=== PATIENT | male | born 1990 | race African-American/Black ===

== ENCOUNTER 2016-11-16 15:12 | Emergency (ER) | payer SELFPAY ==
[~2016-11-16] VITALS: Ht 175.3 cm; Wt 113.4 kg
[2016-11-16 15:20] VITALS: BP 137/80
[2016-11-16] MEDS ORDERED: DIPHTH,PERTUSS(ACELL),TET TOX 0.5 ML DISP.SYRIN. VAX IM ONE (15:30)
--- NOTE | 2016-11-16 16:27 | RAD ---
Procedure: Venous Lower Extremity bilateral. Clinical information: Bilateral lower extremity venous and swelling, greater on the left. Date of Service: 11/16/16. No priors. Technique: Color flow Doppler and Doppler spectral waveform analysis of the bilateral lower extremity venous system were acquired. In addition, compression, augmentation and response to Valsalva techniques were employed. Findings: Bilateral lower extremity veins demonstrate normal caliber and wall thickness. Color flow Doppler demonstrates normal venous flow without intraluminal thrombus. There is normal venous compression and distal augmentation. Doppler spectral waveform demonstrates normal venous respiratory phasicity. Note is made of mildly enlarged bilateral groin lymph nodes. Impression: Normal venous duplex study of the bilateral lower extremities. No evidence of deep venous thrombosis.
[2016-11-16] MEDS ORDERED: CLIN-44 PO (16:48)
[2016-11-16] MEDS ORDERED: TRAM-29 PO (16:48)
--- NOTE | 2016-11-16 16:49 | PHYS DOC ---
Past Medical History Past Medical History: Migraines Past Surgical History: No Surgical History Alcohol Use: None Drug Use: None Adult General Chief Complaint Chief Complaint: LOWER EXT PAIN HPI HPI Patient is a 26 year old male with no significant medical history who presents with bilateral lower extremities pain and swelling that began 3 days ago. Patient denies any fever. Denies any trauma. Review of Systems Review of Systems Constitutional: Denies fever or chills [] Eyes: Denies change in visual acuity, redness, or eye pain [] HENT: Denies nasal congestion or sore throat [] Respiratory: Denies cough or shortness of breath [] Cardiovascular: No additional information not addressed in HPI [] GI: Denies abdominal pain, nausea, vomiting, bloody stools or diarrhea [] : Denies dysuria or hematuria [] Musculoskeletal: Denies back pain or joint pain [] Integument: Bilateral lower extremity pain and swelling Neurologic: Denies headache, focal weakness or sensory changes [] Endocrine: Denies polyuria or polydipsia [] Current Medications Current Medications Current Medications Medications (Trade) Dose Ordered Sig/Eduardo Start Time Stop Time Status Last Admin Dose Admin Diphtheria/ Tetanus/Acell Pertussis (Boostrix) 0.5 ml ONCE ONCE 11/16/16 15:30 11/16/16 15:31 DC 11/16/16 16:21 0.5 ML Allergies Allergies Allergies Coded Allergies Type Severity Reaction Last Updated Verified No Known Drug Allergies 11/16/16 No Physical Exam Physical Exam Constitutional: Well developed, well nourished, no acute distress, non-toxic appearance. [] HENT: Normocephalic, atraumatic, bilateral external ears normal, oropharynx moist, no oral exudates, nose normal. [] Eyes: PERRLA, EOMI, conjunctiva normal, no discharge. [] Neck: Normal range of motion, no tenderness, supple, no stridor. [] Cardiovascular:Heart rate regular rhythm, no murmur [] Lungs & Thorax: Bilateral breath sounds clear to auscultation [] Abdomen: Bowel sounds normal, soft, no tenderness, no masses, no pulsatile masses. [] Skin: Bilateral lower extremity medial aspects with areas of cellulitis covering the lower aspect of the extremities from the ankle to the mid calf. Negative Homans sign bilaterally. +2 bilateral lower extremity pulses. Neurovascular exam is normal bilateral lower extremities. Back: No tenderness, no CVA tenderness. [] Extremities: No tenderness, no cyanosis, no clubbing, ROM intact, no edema. [] Neurologic: Alert and oriented X 3, normal motor function, normal sensory function, no focal deficits noted. [] Psychologic: Affect normal, judgement normal, mood normal. [] Current Patient Data Vital Signs Vital Signs Date Time Temp Pulse Resp B/P (MAP) Pulse Ox O2 Delivery O2 Flow Rate FiO2 11/16/16 15:20 99.9 111 20 97 Room Air 99.9 EKG EKG [] Radiology/Procedures Radiology/Procedures [] Course & Med Decision Making Course & Med Decision Making Pertinent Labs and Imaging studies reviewed. (See chart for details) Patient is in the ED with bilateral extremity cellulitis with slight fever with a temperature of 99.9. Bilateral lower extremities venous Dopplers are negative for any acute findings. Patient was given tetanus in the ED. Discharged with clindamycin. Instructed to keep the affected area clean and dry. Follow-up with PCP in 1-2 weeks. Dragon Disclaimer Dragon Disclaimer This electronic medical record was generated, in whole or in part, using a voice recognition dictation system. Departure Departure Impression: Primary Impression: Bilateral lower leg cellulitis Additional Impression: Fever Disposition: 01 HOME, SELF-CARE Condition: STABLE Referrals: NO PCP (PCP) Follow-up with your primary care doctor in 1-2 weeks Patient Instructions: Cellulitis, [id number], Fever, Adult Additional Instructions: You were seen with cellulitis of bilateral lower extremities. You are also running a slight temperature. Take Tylenol every 4 hours and Motrin every 6 hours. Keep your lower extremities clean and dry. Complete your antibiotics. Try and follow-up with the primary care doctor in the next 7-14 days. Scripts Tramadol Hcl (ULTRAM) 50 Mg Tablet 1 TAB PO Q6HRS, #30 TAB Prov: MARYSE GALVAN APRN 11/16/16 Clindamycin Hcl (CLINDAMYCIN HCL) 150 Mg Capsule 3 CAP PO TID, #90 CAP Prov: MARYSE GALVAN APRN 11/16/16 Problem Qualifiers Additional Impression: Fever Fever type: unspecified Qualified Codes: R50.9 - Fever, unspecified MARYSE GALVAN APRN November 16, 2016 16:49
== END 2016-11-16 17:01 | disposition home or self-care (01) ==
LOC: ER 15:12
DX: L03.115 Cellulitis of right lower limb (principal); L03.116 Cellulitis of left lower limb; G43.909 Migraine, unspecified, not intractable, without status migrainosus
CPT/HCPCS: 90471; 90715; 93970; 99284-25

== ENCOUNTER 2017-09-28 18:02 | Emergency (ER) | payer SELFPAY ==
[2017-09-28 19:02] LABS: ADD MAN DIFF? NO
[2017-09-28] MEDS: IV NORMAL SALINE 1000ML BAG 1,000 ML IV (19:02)
[2017-09-28 19:03] LABS: BASO # 0.1 x10^3/uL (0.0-0.2); BASO % 1 % (0-3); EOS # 0.1 x10^3/uL (0.0-0.7); EOS % 1 % (0-3); HEMOGLOBIN 13.7 g/dL (13.0-17.5); LYMPH # 4.5 x10^3/uL (1.0-4.8); LYMPH % 43 % (24-48); MEAN CORPUSCULAR HEMOGLOBIN 26 pg (25-35); MEAN CORPUSCULAR HGB CONC 33 g/dL (31-37); MEAN CORPUSCULAR VOLUME 81 fL (79-100); MONO # 0.9 x10^3/uL (0.0-1.1); MONO % 9 % (0-9); NEUT # 4.9 x10^3uL (1.8-7.7); NEUT % 47 % (31-73); PLATELET COUNT 264 x10^3/uL (140-400); RED BLOOD COUNT 5.21 x10^6/uL (4.30-5.70); RED CELL DISTRIBUTION WIDTH 14.8 % (11.5-14.5); WHITE BLOOD COUNT 10.4 x10^3/uL (4.0-11.0)
[2017-09-28] MEDS: ONDANSETRON PF 4 MG/2 ML VIAL. IV (19:03)
[2017-09-28] MEDS: ASA/APAP/CAFFEINE 250/250/65MG TABLET. PO (19:03)
[2017-09-28 19:12] LABS: INR 1.1 (0.8-1.1); PROTHROMBIN TIME PATIENT 13.7 SEC (11.7-14.0)
[2017-09-28 19:14] LABS: ANION GAP 10 (6-14); BLOOD UREA NITROGEN 8 mg/dL (8-26); CALCIUM 8.9 mg/dL (8.5-10.1); CARBON DIOXIDE 27 mmol/L (21-32); CHLORIDE 100 mmol/L (98-107); CREATININE 1.1 mg/dL (0.7-1.3); GFR 95.8; GLUCOSE 107 mg/dL (70-99); POTASSIUM 3.4 mmol/L (3.5-5.1); SODIUM 137 mmol/L (136-145)
[2017-09-28 19:19] LABS: ALBUMIN 3.6 g/dL (3.4-5.0); ALK PHOS 83 U/L (46-116); ALT (SGPT) 41 U/L (16-63); AST (SGOT) 23 U/L (15-37); DIRECT BILIRUBIN < 0.1 mg/dL (0.0-0.2); MAGNESIUM 1.8 mg/dL (1.8-2.4); TOTAL BILIRUBIN 0.3 mg/dL (0.2-1.0); TOTAL PROTEIN 8.4 g/dL (6.4-8.2)
[2017-09-28 19:32] LABS: CREATINE KINASE 128 U/L (39-308)
[2017-09-28] MEDS: GADOBUTROL 10 MMOL/10 ML VIAL IV (20:47)
[2017-09-28 21:26] LABS: BILIRUBIN,URINE NEGATIVE (NEG); CLARITY,URINE CLEAR; COLOR,URINE YELLOW; GLUCOSE,URINE NEGATIVE (NEG); NITRITE,URINE NEGATIVE (NEG); PH,URINE 6.5; PROTEIN,URINE NEGATIVE (NEG-TRACE)
[2017-09-28 21:32] LABS: BARBITURATES NEG (NEG); BENZODIAZEPINES NEG (NEG); CANNABINOIDS NEG (NEG); COCAINE NEG (NEG); METHADONE NEG (NEG); OPIATES NEG (NEG); PHENCYCLIDINE NEG (NEG)
[2017-09-28 21:33] LABS: AMPHETAMINE/METHAMPHETAMINE NEG (NEG); ETHANOL, URINE NEG (NEG)
[2017-09-28 21:44] LABS: BACTERIA,URINE FEW /HPF (0-FEW)
[2017-09-28 21:45] LABS: SQUAMOUS EPITHELIAL CELL,UR OCC /LPF
== END 2017-09-28 22:17 | disposition home or self-care (01) ==
LOC: ER 18:02
DX: G43.109 Migraine with aura, not intractable, without status migrainosus (principal)
CPT/HCPCS: 36415; 70450; 70553; 80048; 80076; 80307; 81001; 82553; 83735; 84443; 85025; 85610; 87086; 93005; 96361; 96374; 96375; 99285-25; A9585; J2405; J7030

== ENCOUNTER 2019-06-14 16:01 | Emergency (ER) | payer OTHER ==
[~2019-06-14] VITALS: Ht 177.8 cm; Wt 113.4 kg
[~2019-06-14 16:01] MED LIST: CLIN150C14 PO; TRAM-48 PO
[2019-06-14 16:20] VITALS: BP 160/72
[2019-06-14] MEDS ORDERED: BENZ100C PO (16:48)
[2019-06-14] MEDS ORDERED: AZIT250T6 PO (16:48)
[2019-06-14] MEDS ORDERED: VENTOLIN HFA18 GM INH (16:48)
--- NOTE | 2019-06-14 16:48 | PHYS DOC ---
Past Medical History Past Medical History: HIV, Migraines Past Surgical History: No Surgical History Alcohol Use: None Drug Use: None Adult General Chief Complaint Chief Complaint: COUGH HPI HPI Patient is a 29 year old AA male who presents to the emergency department with complaints of a cough for the last 2 weeks. Patient states she's been taking Mucinex with little relief of his symptoms. He reports chest congestion, intermittent wheezing, and a nonproductive cough for the last 2 weeks. Patient states that times is ears have hurt he denies any bleeding or drainage from the ears. Patient also denies any fever, shortness of breath, nausea, vomiting, diarrhea, sore throat, abdominal pain, back pain, body aches, rash, or headache. Patient states that his only health history is HIV, he is currently on antiviral therapy for that. He currently complains of feeling fatigued. He denies any pain at this time. All other ROS is neg unless otherwise noted in HPI. Review of Systems Review of Systems See Above Allergies Allergies Allergies Coded Allergies Type Severity Reaction Last Updated Verified No Known Drug Allergies 11/16/16 No Physical Exam Physical Exam See Above Constitutional: Well developed, well nourished, no acute distress, non-toxic appearance, obese. [] HENT: Normocephalic, atraumatic, bilateral external ears normal, bilateral TMs normal, mild erythema of posterior pharynx, oropharynx moist, no oral exudates, nose normal. [] Eyes: PERRLA, EOMI, conjunctiva normal, no discharge. [] Neck: Normal range of motion, no tenderness, supple, no stridor. [] Cardiovascular:Heart rate regular rhythm, no murmur [] Lungs & Thorax: Bilateral breath sounds clear to auscultation [] Skin: Warm, dry, no erythema, no rash. [] Back: No tenderness Extremities: No cyanosis, ROM intact Neurologic: Alert and oriented X 3, no focal deficits noted. [] Psychologic: Affect normal, judgement normal, mood normal. [] Current Patient Data Vital Signs Vital Signs Date Time Temp Pulse Resp B/P (MAP) Pulse Ox O2 Delivery O2 Flow Rate FiO2 06/14/19 16:20 98.3 115 22 160/72 (101) 97 Room Air 98.3 EKG EKG [] Radiology/Procedures Radiology/Procedures [] Course & Med Decision Making Course & Med Decision Making Pertinent Labs and Imaging studies reviewed. (See chart for details) [] Dragon Disclaimer Dragon Disclaimer This electronic medical record was generated, in whole or in part, using a voice recognition dictation system. Departure Departure Impression: Primary Impression: URI (upper respiratory infection) Additional Impression: Bronchitis Disposition: 01 HOME, SELF-CARE Condition: STABLE Referrals: NO PCP (PCP) Patient Instructions: Acute Bronchitis, [id number], Upper Respiratory Infection, Adult, [id number] Additional Instructions: Fill prescription(s) and use as directed. Recommend use of a Cool mist humidifier in room at bedtime. Alternate Tylenol or ibuprofen as needed for pain/fever. Increase clear fluids. Avoid airway triggers such as smoke, fragrance, dust, and pollen. May take [id number] cough suppressants as needed. Follow-up with your primary care doctor if symptoms persist, return to the ER if symptoms worsen. Scripts Benzonatate (TESSALON PERLE) 100 Mg Capsule 1 CAP PO TID PRN for COUGH for 7 Days, #21 CAP 0 Refills Prov: VICKIE HE APRN 06/14/19 Azithromycin (AZITHROMYCIN TABLET) 250 Mg Tablet 1 PKG PO UD for 5 Days, #6 TAB 0 Refills 2 the first day followed by 1 for days 2-5 Prov: VICKIE HE APRN 06/14/19 Albuterol Sulfate (VENTOLIN HFA INHALER) 18 Gm Hfa.aer.ad 2 PUFF INH Q4HRS PRN for WHEEZING for 30 Days, #1 INHALER 0 Refills Prov: VICKIE HE APRN 06/14/19 Problem Qualifiers Primary Impression: URI (upper respiratory infection) URI type: unspecified viral URI Qualified Codes: J06.9 - Acute upper respiratory infection, unspecified VICKIE HE APRN Jun 14, 2019 16:48
== END 2019-06-14 16:55 | disposition home or self-care (01) ==
LOC: ER 16:01
DX: J40 Bronchitis, not specified as acute or chronic (principal); J06.9 Acute upper respiratory infection, unspecified; G43.909 Migraine, unspecified, not intractable, without status migrainosus
CPT/HCPCS: 99283

== ENCOUNTER 2019-06-29 23:42 | Emergency (ER) | payer OTHER ==
[~2019-06-29] VITALS: Ht 177.8 cm; Wt 128.8 kg
[~2019-06-29 23:42] MED LIST changes: +AZIT250T6 PO; +BENZ100C PO; +VENTOLIN HFA18 GM INH
[2019-06-29 23:55] VITALS: BP 141/80
--- NOTE | 2019-06-30 00:16 | PHYS DOC ---
Past Medical History Past Medical History: HIV, Migraines (ZOILA SANTIZO APRN) Past Surgical History: No Surgical History (ZOILA SANTIZO APRN) Alcohol Use: None Drug Use: None (ZOILA SANTIZO APRN) Adult General Chief Complaint Chief Complaint: COUGH HPI HPI Patient is a 29 year old male who presents with cough that is productive with green mucus this been ongoing for month. The patient was seen 2 weeks ago and put on a Z-Jimmie, and given an inhaler which helped. The patient states that the cough has continued. He denies any fevers. The patient does have a history of HIV. (ZOILA SANTIZO APRN) Review of Systems Review of Systems Constitutional: Denies fever or chills [] Eyes: Denies change in visual acuity, redness, or eye pain [] HENT: Denies nasal congestion or sore throat [] Respiratory: Reports productive cough. Cardiovascular: No additional information not addressed in HPI [] GI: Denies abdominal pain, nausea, vomiting, bloody stools or diarrhea [] : Denies dysuria or hematuria [] Musculoskeletal: Denies back pain or joint pain [] Integument: Denies rash or skin lesions [] Neurologic: Denies headache, focal weakness or sensory changes [] Complete systems were reviewed and found to be within normal limits, except as documented in this note. (ZOILA SANTIZO APRN) Current Medications Current Medications Current Medications Medications (Trade) Dose Ordered Sig/Eduardo Start Time Stop Time Status Last Admin Dose Admin Dexamethasone (Decadron) 10 mg 1X STAT 06/30/19 00:22 06/30/19 00:25 DC 06/30/19 00:55 10 MG (ZOILA GARDINER DO) Allergies Allergies Allergies Coded Allergies Type Severity Reaction Last Updated Verified No Known Drug Allergies 11/16/16 No (ZOILA GARDINER DO) Physical Exam Physical Exam Constitutional: Well developed, well nourished, no acute distress, non-toxic appearance. [] HENT: Normocephalic, atraumatic, bilateral external ears normal, oropharynx moist, no oral exudates, nose normal. [] Eyes: PERRLA, EOMI, conjunctiva normal, no discharge. [] Neck: Normal range of motion, no tenderness, supple, no stridor. [] Cardiovascular:Heart rate regular rhythm, no murmur [] Lungs & Thorax: Bilateral breath sounds clear to auscultation [] Neurologic: Alert and oriented X 3, normal motor function, normal sensory function, no focal deficits noted. [] Psychologic: Affect normal, judgement normal, mood normal. [] (ZOILA SANTIZO APRN) Current Patient Data Vital Signs Vital Signs Date Time Temp Pulse Resp B/P (MAP) Pulse Ox O2 Delivery O2 Flow Rate FiO2 06/29/19 23:55 98.6 97 18 141/80 (100) 99 Room Air 98.6 (ZOILA GARDINER DO) EKG EKG [] (ZOILA SANTIZO APRN) Radiology/Procedures Radiology/Procedures [] (ZOILA SANTIZO APRN) Course & Med Decision Making Course & Med Decision Making Pertinent Labs and Imaging studies reviewed. (See chart for details) Will get a chest x-ray as this has been ongoing for a month. The chest x-ray shows some opacities. Will place on Doxycycline, Inhaler, Tessalon Perles, and 5 days of Prednisone. Will give Decadron in ER. (ZOILA SANTIZO APRN) Dragon Disclaimer Dragon Disclaimer This electronic medical record was generated, in whole or in part, using a voice recognition dictation system. (ZOILA SANTIZO APRN) Departure Departure Impression: Primary Impression: Bronchitis Additional Impression: History of HIV infection Disposition: 01 HOME, SELF-CARE Condition: STABLE Referrals: ALEA COLLADO MD (PCP) Patient Instructions: Acute Bronchitis Additional Instructions: Thank you for visiting [facility]. We appreciate you trusting us with your care. If any additional problems come up don't hesitate to return to visit us. Please follow up with your primary care provider so they can plan additional care if needed and know about the problem that you had. If symptoms worsen come back to the Emergency Department. Any concerning symptoms that start such as chest pain, shortness of air, weakness or numbness on one side of the body, running high fevers or any other concerning symptoms return to the ER. Please fill your medications at any pharmacy and follow the prescription instructions. You have been prescribed an antibiotic today to help fight your infection. Please take all of the antibiotic as directed. If after 48 hours the infection is not improving, please return for more care. If the infection worsens, return to ER for additional care. Scripts Doxycycline Hyclate (DOXYCYCLINE HYCLATE) 100 Mg Capsule 1 CAP PO BID for 10 Days, #20 CAP Prov: ZOILA SANTIZO APRN 06/30/19 Prednisone (PREDNISONE) 20 Mg Tablet 2 TAB PO DAILY for 5 Days, #10 TAB Prov: ZOILA SANTIZO APRN 06/30/19 Benzonatate (TESSALON PERLE) 100 Mg Capsule 1 CAP PO TID PRN for COUGH for 7 Days, #21 CAP 0 Refills Prov: ZOILA SANTIZO APRN 06/30/19 Albuterol Sulfate (VENTOLIN HFA INHALER) 18 Gm Hfa.aer.ad 2 PUFF INH Q4HRS PRN for WHEEZING for 30 Days, #1 INHALER 0 Refills Prov: ZOILA SANTIZO APRN 06/30/19 Attending Signature Attending Signature I have reviewed the PA/SOCK LINER's note and plan of care. I was available for consultation as needed during the patient's visit in the emergency department. I agree with the clinical impression, plan, and disposition. (ZOILA GARDINER DO) Problem Qualifiers ZOILA SANTIZO APRN Jun 30, 2019 00:16 ZOILA GARDINER DO Jun 30, 2019 01:19
[2019-06-30] MEDS ORDERED: DEXAMETHASONE 4 MG TABLET PO STA (00:22)
[2019-06-30] MEDS ORDERED: PRED20TA PO (00:25)
[2019-06-30] MEDS ORDERED: VENTOLIN HFA18 GM INH (00:25)
[2019-06-30] MEDS ORDERED: BENZ100C PO (00:25)
[2019-06-30] MEDS ORDERED: DOXY100C2 PO (00:25)
--- NOTE | 2019-06-30 04:36 | RAD ---
CHEST PA LATERAL INDICATION: Cough. COMPARISON STUDY: None. FINDINGS: Lungs: Low lung volume. Mild right basilar opacities. The tracheobronchial tree and hilar structures are normal. Pleura: No pleural effusion or pneumothorax. Heart and Mediastinum: The cardiomediastinal silhouette is normal. The great vessels of the thorax are normal. Bones and Soft Tissues: The bones and soft tissues are within normal limits. IMPRESSION: Mild right basilar opacities, which could represent subsegmental atelectasis or potentially an infectious/inflammatory process. Electronically signed by: Stanford Delgado MD (06/30/2019 4:33 AM) [facility]
== END 2019-06-30 01:02 | disposition home or self-care (01) ==
LOC: ER 23:42
DX: J40 Bronchitis, not specified as acute or chronic (principal); G43.909 Migraine, unspecified, not intractable, without status migrainosus
CPT/HCPCS: 71046; 99284; J8540

== ENCOUNTER 2019-08-10 12:55 | Emergency (ER) | payer OTHER ==
[~2019-08-10] VITALS: Ht 177.8 cm; Wt 127.0 kg
[~2019-08-10 12:55] MED LIST changes: +DOXY100C2 PO; +PRED20TA PO
[2019-08-10 13:35] VITALS: BP 144/74
[2019-08-10] MEDS ORDERED: predniSONE 10 MG TABLET PO ONE (14:00)
[2019-08-10] MEDS ORDERED: ALBUTEROL SULFATE 2.5 MG/3 ML NEBU. NEB ONE (14:00)
--- NOTE | 2019-08-10 14:01 | PHYS DOC ---
Past Medical History Past Medical History: HIV, Migraines Past Surgical History: No Surgical History Alcohol Use: None Drug Use: None Adult General Chief Complaint Chief Complaint: COUGH HPI HPI Patient is a 29 year old male who presents with was here June 14 for an upper respiratory illness which she is given azithromycin, Tessalon Perles inhaler. He continued to have the cough and came back on June 29, 2019 and was given doxycycline, Tessalon Perles, and inhaler and steroid. Patient states he followed up with his primary care doctor but when he went they said that he was not wheezing today cannot refer him anywhere. Patient states he's been diagnosed with asthma but has not been able to get further care for his asthma. Review of Systems Review of Systems Respiratory: cough or shortness of breath [] All other systems were reviewed and found to be within normal limits, except as documented in this note. Current Medications Current Medications Current Medications Medications (Trade) Dose Ordered Sig/Eduardo Start Time Stop Time Status Last Admin Dose Admin Albuterol Sulfate (Ventolin Neb Soln) 2.5 mg 1X ONCE 08/10/19 14:00 08/10/19 14:01 DC 08/10/19 14:03 2.5 MG Prednisone (Prednisone) 50 mg 1X ONCE 08/10/19 14:00 08/10/19 14:01 DE Allergies Allergies Allergies Coded Allergies Type Severity Reaction Last Updated Verified No Known Drug Allergies 11/16/16 No Physical Exam Physical Exam Constitutional: Well developed, well nourished, no acute distress, non-toxic appearance. [] HENT: Normocephalic, atraumatic, bilateral external ears normal, oropharynx moist, no oral exudates, nose normal. [] Eyes: PERRLA, EOMI, conjunctiva normal, no discharge. [] Neck: Normal range of motion, no tenderness, supple, no stridor. [] Cardiovascular:Heart rate regular rhythm, no murmur [] Lungs & Thorax: Bilateral upper breath sounds were inspiratory wheezes to auscultation [] Abdomen: Bowel sounds normal, soft, no tenderness, no masses, no pulsatile masses. [] Skin: Warm, dry, no erythema, no rash. [] Back: No tenderness, no CVA tenderness. [] Extremities: No tenderness, no cyanosis, no clubbing, ROM intact, no edema. [] Neurologic: Alert and oriented X 3, normal motor function, normal sensory function, no focal deficits noted. [] Psychologic: Affect normal, judgement normal, mood normal. [] Current Patient Data Vital Signs Vital Signs Date Time Temp Pulse Resp B/P (MAP) Pulse Ox O2 Delivery O2 Flow Rate FiO2 08/10/19 14:04 98 Room Air 08/10/19 13:35 97.9 86 20 144/74 (97) 97.9 EKG EKG [] Radiology/Procedures Radiology/Procedures [] Impressions: [facility] [address] [place] [address] IMAGING REPORT Signed PATIENT: MOUNIKA LUTZ RACCOUNT: [id number] : 1990 LOCATION: ER AGE: 29 SEX: M EXAM STATUS: REG ER ORD. PHYSICIAN: SANTIAGO GARSIA APRN REASON: cough PROCEDURE: CHEST PA & LATERAL CHEST PA LATERAL History: Cough Comparison: 06/30/2019 to chest x-ray exam. Findings: Frontal and lateral views of chest were obtained. Somewhat limited pulmonary inflation is evident. Heart size and pulmonary vasculature are normal. The cardiomediastinal silhouette is normal. Pulmonary vasculature is normal. Mild right medial lower lung field opacity which is minimally greater than on the prior exam is present. This may represent atelectasis. No pleural effusion or pneumothorax is seen. There is no acute bone abnormality. IMPRESSION: Subtle right infrahilar opacity which may represent atelectasis or possibly is again seen. It may be slightly more prominent in the interval. Electronically signed by: Evan Slade MD (08/10/2019 2:06 PM) [id number] DICTATED and SIGNED BY: EVAN SLADE MD DATE: 08/10/19 1406 Course & Med Decision Making Course & Med Decision Making Lungs are clear but he has wheezes expiratory and inspiratory and his upper lobes bilaterally. Speaks in full clear sentences. He states for his job he has to talk a lot and it makes him cough even more. Patient denies fever, nausea, vomiting, diarrhea, chest pain, dizziness, headache, numbness tingling, visual changes, weakness. He states he does not feel ill she is to cough and the shortness of breath and wheezing. Patient has a history of asthma, pneumonia, HIV, bronchitis. Dragon Disclaimer Dragon Disclaimer This electronic medical record was generated, in whole or in part, using a voice recognition dictation system. Departure Departure Impression: Primary Impression: Bronchitis Disposition: 01 HOME, SELF-CARE Condition: STABLE Referrals: ALEA COLLADO MD (PCP) KINGSTON AMEZCUA MD Patient Instructions: Bronchitis Additional Instructions: Follow-up with a cryptological technician. Take medications as prescribed. Scripts Albuterol Sulfate (PROAIR HFA INHALER) 8.5 Gm Hfa.aer.ad 1 PUFF INH PRN Q6HRS PRN for SHORTNESS OF BREATH, #1 INHALER 0 Refills Prov: SANTIAGO GARSIA ELECTRICAL HIGH TENSION TESTER 08/10/19 Benzonatate (TESSALON PERLE) 100 Mg Capsule 1 CAP PO TID, #30 CAP Prov: SANTIAGO GARSIA ELECTRICAL HIGH TENSION TESTER 08/10/19 Methylprednisolone (MEDROL) 4 Mg Tab.ds.pk 1 PKG PO UD, #1 PKG Prov: SANTIAGO GARSIA ELECTRICAL HIGH TENSION TESTER 08/10/19 Levofloxacin (LEVAQUIN) 500 Mg Tablet 1 TAB PO DAILY for 10 Days, #10 TAB 0 Refills Prov: SANTIAGO GARSIA ELECTRICAL HIGH TENSION TESTER 08/10/19 SANTIAGO GARSIA ELECTRICAL HIGH TENSION TESTER Aug 10, 2019 14:01
--- NOTE | 2019-08-10 14:09 | RAD ---
CHEST PA LATERAL History: Cough Comparison: 06/30/2019 to chest x-ray exam. Findings: Frontal and lateral views of chest were obtained. Somewhat limited pulmonary inflation is evident. Heart size and pulmonary vasculature are normal. The cardiomediastinal silhouette is normal. Pulmonary vasculature is normal. Mild right medial lower lung field opacity which is minimally greater than on the prior exam is present. This may represent atelectasis. No pleural effusion or pneumothorax is seen. There is no acute bone abnormality. IMPRESSION: Subtle right infrahilar opacity which may represent atelectasis or possibly is again seen. It may be slightly more prominent in the interval. Electronically signed by: Evan Raya MD (08/10/2019 2:06 PM) [id number]
[2019-08-10] MEDS ORDERED: ALBU2.5V8 INH (14:19)
[2019-08-10] MEDS ORDERED: BENZ100C PO (14:19)
[2019-08-10] MEDS ORDERED: LEVO500T59 PO (14:19)
[2019-08-10] MEDS ORDERED: METH4TAB2 PO (14:19)
== END 2019-08-10 14:26 | disposition home or self-care (01) ==
LOC: ER 12:55
DX: J40 Bronchitis, not specified as acute or chronic (principal); G43.909 Migraine, unspecified, not intractable, without status migrainosus; Z21 Asymptomatic human immunodeficiency virus [HIV] infection status
CPT/HCPCS: 71046; 94640; 99284; J7512; J7613

== ENCOUNTER 2019-11-23 01:23 | Emergency (ER) | payer OTHER ==
[~2019-11-23] VITALS: Ht 177.8 cm; Wt 131.8 kg
[~2019-11-23 01:23] MED LIST changes: +ALBU2.5V8 INH; +LEVO500T59 PO; +METH4TAB2 PO
[2019-11-23 01:35] VITALS: BP 134/60
--- NOTE | 2019-11-23 01:41 | PHYS DOC ---
Past Medical History Past Medical History: HIV, Migraines Past Surgical History: No Surgical History Smoking Status: Never Smoker Alcohol Use: None Drug Use: None General Adult EDM: Chief Complaint: LOWER BACK PAIN OR INJURY HPI: HPI: Patient is a 29 year old male who presents with complaint of tailbone pain. Patient states that he had been at work on Wednesday and was standing on some cardboard that slipped out from under him and he fell on to his tailbone, injuring it. He states that initially the pain was not very bad but the next morning it became worse and over the last few days, pain is progressively gotten worse. He does indicate that pain is worsened with walking. [] Review of Systems: Review of Systems: Constitutional: Denies fever or chills. [] Respiratory: Denies cough or shortness of breath. [] Cardiovascular: Denies chest pain or edema. [] Musculoskeletal: Complains of tailbone pain. [] Integument: Denies rash. [] Neurologic: Denies headache, focal weakness or sensory changes. [] Heart Score: Risk Factors: Risk Factors: DM, Current or recent (<one month) smoker, HTN, HLP, family history of CAD, obesity. Risk Scores: Score 0 - 3: 2.5% MACE over next 6 weeks - Discharge Home Score 4 - 6: 20.3% MACE over next 6 weeks - Admit for Clinical Observation Score 7 - 10: 72.7% MACE over next 6 weeks - Early Invasive Strategies Allergies: Allergies: Allergies Coded Allergies Type Severity Reaction Last Updated Verified No Known Drug Allergies 11/16/16 No Physical Exam: PE: Constitutional: Well developed, well nourished, no acute distress, non-toxic appearance. [] Cardiovascular: Regular rate and rhythm [] Lungs & Thorax: Bilateral breath sounds clear to auscultation [] Back: There is tenderness to palpation overlying the mid to lower coccyx. [] Extremities: No tenderness, no cyanosis, no clubbing, ROM intact, no edema. [] EKG: EKG: [] Radiology/Procedures: Radiology/Procedures: [] Course & Med Decision Making: Course & Med Decision Making Pertinent Labs and Imaging studies reviewed. (See chart for details) [] Dragon Disclaimer: Dragon Disclaimer: This electronic medical record was generated, in whole or in part, using a voice recognition dictation system. Departure Departure Impression: Primary Impression: Coccyx contusion Qualified Codes: S30.0XXA - Contusion of lower back and pelvis, initial encounter Disposition: 01 HOME, SELF-CARE Condition: STABLE Referrals: ALEA COLLADO MD (PCP) Patient Instructions: Tailbone Injury Scripts Tramadol Hcl (TRAMADOL HCL) 50 Mg Tablet 50 MG PO Q6HRS PRN for PAIN, #12 TAB Prov: LATOSHA ROSADO Jr. DO 11/23/19 Diclofenac Sodium (DICLOFENAC SODIUM) 50 Mg Tablet.dr 1 TAB PO BID PRN for PAIN, #20 TAB Prov: LATOSHA ROSADO Jr. DO 11/23/19 LATOSHA ROSADO Jr. DO November 23, 2019 01:41
--- NOTE | 2019-11-23 02:06 | RAD ---
Sacrum coccyx 3 views History: Pain status post fall AP views of the sacrum and coccyx was obtained as well as a lateral view. The visualized osseous structures appear normal. This is a difficult area to evaluate. There is some obscuration of bony detail of the sacrum due to overlying bowel gas. Impression: No acute bony abnormality noted. Electronically signed by: Shan Shen III, MD (11/23/2019 2:04 AM) [id number]
[2019-11-23] MEDS ORDERED: DICL50TA4 PO (02:10)
[2019-11-23] MEDS ORDERED: TRAM50TA PO (02:10)
== END 2019-11-23 02:18 | disposition home or self-care (01) ==
LOC: ER 01:23
DX: S30.0XXA Contusion of lower back and pelvis, initial encounter (principal); G43.909 Migraine, unspecified, not intractable, without status migrainosus; W01.0XXA Fall on same level from slipping, tripping and stumbling without subsequent striking against object, initial encounter; Y93.89 Activity, other specified; Y92.69 Other specified industrial and construction area as the place of occurrence of the external cause; Y99.0 Civilian activity done for income or pay
CPT/HCPCS: 72220; 99284

== ENCOUNTER 2020-10-23 01:28 | Emergency (ER) | payer OTHER ==
[~2020-10-23] VITALS: Ht 177.8 cm; Wt 127.2 kg
[~2020-10-23 01:28] MED LIST changes: -CLIN150C14 PO; +CLIN150C15 PO; +DICL50TA4 PO; +TRAM50TA PO
[2020-10-23 02:48] VITALS: BP 128/59
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
== END 2020-10-23 03:57 | disposition home or self-care (01) ==
LOC: ER 01:28
DX: T24.402A Corrosion of unspecified degree of unspecified site of left lower limb, except ankle and foot, initial encounter (principal); T32 Corrosions classified according to extent of body surface involved; G43.909 Migraine, unspecified, not intractable, without status migrainosus; Y93.89 Activity, other specified; Y92.89 Other specified places as the place of occurrence of the external cause; Y99.8 Other external cause status
CPT/HCPCS: 99282

== ENCOUNTER 2020-11-07 11:46 | Emergency (ER) | payer OTHER ==
[~2020-11-07] VITALS: Ht 177.8 cm; Wt 125.9 kg
[2020-11-07] MEDS ORDERED: ACETAMINOPHEN 500 MG TABLET PO ONE (12:30)
[2020-11-07] MEDS ORDERED: IV NORMAL SALINE 1000ML BAG 1,000 ML IV SCH (12:30)
[2020-11-07] MEDS ORDERED: DEXAMETHASONE SOD PHOS 20 MG/5 ML VIAL. IV ONE (12:30)
--- NOTE | 2020-11-07 12:36 | EKG ---
[facility] [address] [place] [address] Test Date: 2020-11-07 Test Time: 12:22:17 Pat Name: MOUNIKA LUTZ Department: Room: Gender: M Cap Sizer: : [id number] Requested By: MARYSE GALVAN Order Number: [id number] Reading MD: Measurements Intervals [place] Rate: 107 P: 27 WV: 144 QRS: 31 QRSD: 78 T: -1 QT: 306 QTc: 414 Interpretive Statements SINUS TACHYCARDIA OTHERWISE NORMAL ECG RI6.02 No previous ECG available for comparison
[2020-11-07 12:47] LABS: BASO # 0.1 x10^3/uL (0.0-0.2); BASO % 1 % (0-3); EOS % 0 % (0-3); HEMATOCRIT 40.3 % (39.0-53.0); HEMOGLOBIN 13.1 g/dL (13.0-17.5); LYMPH # 1.5 x10^3/uL (1.0-4.8); LYMPH % 18 % (24-48); MEAN CORPUSCULAR HEMOGLOBIN 26 pg (25-35); MEAN CORPUSCULAR HGB CONC 33 g/dL (31-37); MEAN CORPUSCULAR VOLUME 80 fL (79-100); MONO # 0.4 x10^3/uL (0.0-1.1); MONO % 5 % (0-9); NEUT # 6.5 x10^3/uL (1.8-7.7); NEUT % 77 % (31-73); PLATELET COUNT 336 x10^3/uL (140-400); RED BLOOD COUNT 5.05 x10^6/uL (4.30-5.70); WHITE BLOOD COUNT 8.5 x10^3/uL (4.0-11.0)
--- NOTE | 2020-11-07 12:51 | RAD ---
EXAM: Chest, single view. HISTORY: Cough. Fever. COMPARISON: 08/10/2019 FINDINGS: A frontal view of the chest is obtained. There is suspected right perihilar interstitial in filtrate and lingular atelectasis or interstitial infiltrate. There is no consolidation, pleural effu brian or pneumothorax. The heart is normal in size. IMPRESSION: Suspected right perihilar interstitial infiltrate and lingular interstitial infiltrate or atelectasis. No consolidated pneumonia is seen. Electronically signed by: Torie Harris MD (11/07/2020 12:49 PM) [id number]
[2020-11-07 13:00] LABS: CALCIUM 8.3 mg/dL (8.5-10.1); CREATININE 1.1 mg/dL (0.7-1.3); GFR 93.9
--- NOTE | 2020-11-07 13:02 | PHYS DOC ---
Past Medical History Past Medical History: Asthma, HIV, Migraines Past Surgical History: No Surgical History Smoking Status: Never Smoker Alcohol Use: None Drug Use: None General Adult EDM: Chief Complaint: SHORTNESS OF BREATH HPI: HPI: Patient is a 30 year old male with history of asthma, HIV positive, migraine headaches, who presents to the ED today with cough, shortness of breath, nasal congestion, generalized mild intermittent headache, shortness of breath symptoms began 3 days ago, he states this morning he had a fever. He states he took Tylenol at 8 AM. Patient denies any chest pain and had a breathing treatment. Denies anything specifically exacerbating or relieving his symptoms. Review of Systems: Review of Systems: Constitutional: Reports fever Eyes: Denies change in visual acuity. [] HENT: Reports nasal congestion and poor appetite, denies sore throat. [] Respiratory: Reports cough and shortness of breath. [] Cardiovascular: Denies chest pain or edema. [] GI: Denies abdominal pain, nausea, vomiting, bloody stools or diarrhea. [] : Denies dysuria. [] Musculoskeletal: Denies back pain or joint pain. [] Integument: Denies rash. [] Neurologic: Reports headache, denies focal weakness or sensory changes. [] Psychiatric: Denies depression or anxiety. [] Heart Score: C/O Chest Pain: N/A Risk Factors: Risk Factors: DM, Current or recent (<one month) smoker, HTN, HLP, family history of CAD, obesity. Risk Scores: Score 0 - 3: 2.5% MACE over next 6 weeks - Discharge Home Score 4 - 6: 20.3% MACE over next 6 weeks - Admit for Clinical Observation Score 7 - 10: 72.7% MACE over next 6 weeks - Early Invasive Strategies Current Medications: Current Medications Medications (Trade) Dose Ordered Sig/Eduardo Start Time Stop Time Status Last Admin Dose Admin Acetaminophen (Tylenol) 1,000 mg 1X ONCE 11/07/20 12:30 11/07/20 12:31 Dexamethasone Sodium Phosphate (Decadron) 10 mg 1X ONCE 11/07/20 12:30 11/07/20 12:31 Sodium Chloride 1,000 ml @ 2,190 mls/hr Q28M 11/07/20 12:30 11/07/20 13:30 Allergies: Allergies: Allergies Coded Allergies Type Severity Reaction Last Updated Verified No Known Drug Allergies 11/07/20 No Physical Exam: PE: Constitutional: Obese patient, no acute distress, non-toxic appearance. [] HENT: Normocephalic, atraumatic, bilateral external ears normal, oropharynx moist, no oral exudates, nose normal. [] Eyes: PERRLA, EOMI, conjunctiva normal, no discharge. [] Neck: Normal range of motion, no tenderness, supple, no stridor. [] Cardiovascular:Heart rate regular rhythm, no murmur [] Lungs & Thorax: Bilateral breath sounds clear to auscultation [] Abdomen: Bowel sounds normal, soft, no tenderness, no masses, no pulsatile masses. [] Skin: Warm, dry, no erythema, no rash. [] Back: No tenderness, no CVA tenderness. [] Extremities: No tenderness, no cyanosis, no clubbing, ROM intact, no edema. [] Neurologic: Alert and oriented X 3, normal motor function, normal sensory function, no focal deficits noted. [] Psychologic: Affect normal, judgement normal, mood normal. [] Current Patient Data: Vital Signs: Vital Signs Date Time Temp Pulse Resp B/P (MAP) Pulse Ox O2 Delivery O2 Flow Rate FiO2 11/07/20 12:04 100.6 110 28 138/66 (90) 94 Room Air 100.6 EKG: EK interpreted by Dr. Atkins sinus tachycardia heart rate 107 no STEMI [] Radiology/Procedures: Radiology/Procedures: []PROCEDURE: PORTABLE CHEST 1V EXAM: Chest, single view. HISTORY: Cough. Fever. COMPARISON: 08/10/2019 FINDINGS: A frontal view of the chest is obtained. There is suspected right perihilar interstitial infiltrate and lingular atelectasis or interstitial infiltrate. There is no consolidation, pleural effusion or pneumothorax. The heart is normal in size. IMPRESSION: Suspected right perihilar interstitial infiltrate and lingular interstitial infiltrate or atelectasis. No consolidated pneumonia is seen. Electronically signed by: Torie Araya MD (11/07/2020 12:49 PM) [id number] DICTATED and SIGNED BY: TORIE ARAYA MD DATE: 11/07/20 [id number] Course & Med Decision Making: Course & Med Decision Making Pertinent Labs and Imaging studies reviewed. (See chart for details) This is a 30-year-old male patient presenting to the ED today complaining of cough, shortness of breath, headache poor appetite and nasal congestion for 3 d ays, also complaining of a fever that began this morning. Temperature 100.6 with a heart rate of 110, respiration 28, 138/66, O2 sats 94% on arrival to the ED Sepsis protocol was started, Covid swab was obtained Patient was given Rocephin and azithromycin. CBC with a normal WBC, CMP with no acute findings, lactic is normal. Chest x-ray noted for interstitial infiltrates. O2 sats have been 94% and above in room air. Discharge to home on azithromycin and prednisone. Inhaler also provided. Follow-up with PCP. Provided return precautions and discharged in stable condition. Dragon Disclaimer: Dragon Disclaimer: This electronic medical record was generated, in whole or in part, using a voice recognition dictation system. Departure Departure Impression: Primary Impression: Fever Qualified Codes: R50.9 - Fever, unspecified Additional Impressions: Cough Asthma exacerbation Qualified Codes: J45.21 - Mild intermittent asthma with (acute) exacerbation Person under investigation for COVID-19 Disposition: HOME HEALTH CARE SERVICE Condition: STABLE Referrals: ALEA COLLADO MD (PCP) follow up in 1-2 weeks Patient Instructions: Cough, Adult, [id number], Fever, Adult Additional Instructions: Your chest x-ray in the emergency room was noted for interstitial infiltrates, we put you on antibiotics, ensure you complete them also complete the prescribe d prednisone. Please take Tylenol or ibuprofen as needed for fever. Follow-up with your primary care doctor in 1 week, come back to the ED at any point symptoms worsen. Quarantine yourself until you get your Covid results Scripts Albuterol Sulfate (Proair Hfa) 8.5 Gm Hfa.aer.ad 1 PUFF INH PRN Q6HRS PRN for SHORTNESS OF BREATH, #1 EACH 1 Refill Prov: MARYSE GALVAN MACHINE CAPTAIN 11/07/20 Prednisone (PREDNISONE) 50 Mg Tablet 1 TAB PO DAILY, #5 TAB Prov: MARYSE GALVAN MACHINE CAPTAIN 11/07/20 Azithromycin (AZITHROMYCIN TABLET) 250 Mg Tablet 1 PKG PO UD for 5 Days, #6 TAB 0 Refills 2 the first day followed by 1 for days 2-5 Prov: MUTUNGA,MARYSE M MACHINE CAPTAIN 11/07/20 MARYSE GALVAN APRN Nov 07, 2020 12:31
[2020-11-07 13:05] LABS: ALBUMIN 3.4 g/dL (3.4-5.0); ALBUMIN/GLOBULIN RATIO 0.7 (1.0-1.7); TOTAL BILIRUBIN 0.4 mg/dL (0.2-1.0); TOTAL PROTEIN 8.2 g/dL (6.4-8.2)
[2020-11-07] MEDS ORDERED: ALBU2.5V8 INH (14:27)
[2020-11-07] MEDS ORDERED: PRED50TA PO (14:27)
[2020-11-07] MEDS ORDERED: AZIT250T6 PO (14:27)
[2020-11-07] MEDS ORDERED: cefTRIAXone IM 1 GM VIAL IM ONE (14:30)
[2020-11-07] MEDS ORDERED: AZITHROMYCIN 250 MG TABLET. PO ONE (14:30)
[2020-11-07] MEDS ORDERED: cefTRIAXone IV Push 1 GM VIAL. IVP ONE ×2 (15:25→15:30)
--- NOTE | 2020-11-07 15:46 | NUR ---
IP: Pt still in ED when covid positive results obtained. Notified ED pathology secretary to notify nurse prior to sending pt out.
[2020-11-07 15:51] VITALS: BP 129/60
--- NOTE | 2020-11-07 16:16 | NUR ---
IP: Followed up with pt to assure he new his covid results. Pt verbalized understanding of positive results and the need to quarantine for 14 days.
== END 2020-11-07 15:58 | disposition home health service (06) ==
LOC: ER 11:46
DX: U07.1 COVID-19 (principal); J45.20 Mild intermittent asthma, uncomplicated; G43.909 Migraine, unspecified, not intractable, without status migrainosus
CPT/HCPCS: 36415; 71045; 80053; 83605; 84145; 85025; 87040; 93005; 96361; 96374; 96375; 99285; J0696; J1100; J7030; U0003; U0005